=== PATIENT | female | born 1990 | race Caucasian/White ===

== ENCOUNTER 2020-03-12 19:02 | Emergency (ER) | payer OTHER ==
[~2020-03-12] VITALS: Ht 160 cm; Wt 82.7 kg
[2020-03-12] MEDS ORDERED: TRAZ-257 PO (19:07)
[2020-03-12] MEDS ORDERED: ZOLP-280 PO (19:07)
[2020-03-12] MEDS ORDERED: LORazepam 1 MG TABLET PO ONE (20:30)
[2020-03-12 20:49] VITALS: BP 125/75
== END 2020-03-12 21:12 | disposition home or self-care (01) ==
LOC: EMS 19:05
DX: G47.00 Insomnia, unspecified (principal); F41.9 Anxiety disorder, unspecified